=== PATIENT | female | born 1965 | race Caucasian/White ===

== ENCOUNTER 2019-05-17 12:11 | Day surgery (SDC) | payer BC ==
[~2019-05-17] VITALS: Ht 160 cm; Wt 69.1 kg
[~2019-05-17 12:11] MED LIST: ASPI-496 PO; ATOR40TA78 PO; CEFAZOLIN 1,000 MG ONE; MONT10TA11 PO; MULT-658 PO; PROPOFOL 10 MG/ML, 20ML ONE; ROCURONIUM 10MG/ML,5ML ONE; SUCCINYLCHOLINE 20 MG/ML, 10ML ONE; [UNRECOGNIZED DRUG - OTHER] PO; baby aspirin PO; cranberry PO; metoprolol PO; zyrtec PO
[2019-05-17] MEDS ORDERED: LACTATED RINGERS 1,000 ML IV SCH (13:11)
[2019-05-17 13:19] VITALS: BP 139/80
[2019-05-17] MEDS ORDERED: VITAMIN C PO (13:34)
[2019-05-17] MEDS ORDERED: SULF1TAB23 PO (13:34)
[2019-05-17] MEDS ORDERED: BACTRIM (13:34)
[2019-05-17] MEDS ORDERED: CALCIUM PO (13:34)
[2019-05-17] MEDS ORDERED: TAMS-11 PO (13:34)
[2019-05-17] MEDS ORDERED: DIAZEPAM 5 MG/ML, 2ML IV PRN ×2 (15:00)
[2019-05-17] MEDS ORDERED: ALBUTEROL SULFATE 2.5 MG/3 ML NPPB PRN (15:00)
[2019-05-17] MEDS ORDERED: METOCLOPRAMIDE 5 MG/ML, 2ML IV PRN (15:00)
[2019-05-17] MEDS ORDERED: hydrALAzine 20 MG/ML, 1ML IV PRN (15:00)
[2019-05-17] MEDS ORDERED: PROMETHAZINE 25 MG/ML, 1ML IV PRN (15:00)
[2019-05-17] MEDS ORDERED: HYDROmorphone 1 MG/ML, 1ML INJ IV PRN (15:00)
[2019-05-17] MEDS ORDERED: ONDANSETRON 2MG/ML, 2ML IVPush PRN (15:00)
[2019-05-17] MEDS ORDERED: FENTANYL PF 100 MCG/2ML IV PRN (15:00)
[2019-05-17] MEDS ORDERED: MEPERIDINE/PF 25MG/0.5ML IVPush PRN (15:00)
[2019-05-17] MEDS ORDERED: KETOROLAC 30 MG/1 ML IV PRN (15:00)
[2019-05-17] MEDS ORDERED: OXYcodone 5 MG/5 ML ORAL.SOL UDC PO PRN (15:00)
[2019-05-17] MEDS ORDERED: LABETALOL 5MG/ML, 20ML IV PRN (15:00)
== END 2019-05-17 17:55 | disposition home or self-care (01) ==
LOC: OUT 12:11 → UNMERGE 14:00 → MERGE 14:00 → EDSTATUS 14:00 → OUT 17:55
PROVIDERS: ATTEND Urology
DX: N20.1 Calculus of ureter (principal); N20.0 Calculus of kidney; N30.90 Cystitis, unspecified without hematuria; Z88.8 Allergy status to other drugs, medicaments and biological substances; Z88.3 Allergy status to other anti-infective agents; Z88.0 Allergy status to penicillin; Z88.2 Allergy status to sulfonamides; Z91.013 Allergy to seafood; Z79.82 Long term (current) use of aspirin; Z79.899 Other long term (current) drug therapy; Z98.890 Other specified postprocedural states; Z87.440 Personal history of urinary (tract) infections; Z72.89 Other problems related to lifestyle; Z87.891 Personal history of nicotine dependence; Z85.6 Personal history of leukemia
CPT/HCPCS: 52356; 74018; C1769; C2617; J0330; J0690; J2250; J2704; J3010; J7120; 76000